=== PATIENT | male | born 1930 | race Caucasian/White ===

== ENCOUNTER 2016-08-05 17:00 | Inpatient (IN) | payer OTHER ==
[~2016-08-05] VITALS: Ht 175.3 cm; Wt 83.9 kg
--- NOTE | ~2016-08-05 | EKG ---
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
--- NOTE | ~2016-08-05 | HC ---
[facility] [place] [address] CONSULTATION Name: ANSLEY GRAF Room #: 451-P [facility] IN .R.#: [id number] Admission: 08/05/16 Attend Phys: Judd Mayfield MD Discharge: Date of : [birth year] Report #: [id number] THIS REPORT FOR: //name// CC: Demarcus Mayfield REASON FOR CONSULTATION: Paroxysmal atrial fibrillation. HISTORY OF PRESENT ILLNESS: The patient is a nice 86-year-old gentleman with sick sinus syndrome and symptomatic bradycardia for which he underwent pacemaker implantation about a year ago. He has a Medtronic device. His history includes tachybrady syndrome. His history includes moderate aortic stenosis and normal left ventricular systolic function. He was last seen in our office in 06/2015, at which time he was doing well. He did report taking sublingual nitroglycerin if he overexerts himself, maybe once or twice a month. No history of recurrent near-syncope or syncope. He is now admitted with progressive hypoxemia. Family reported that he had nausea and vomiting and thinks that he has probably been aspirating despite nectar-thickened liquids. No orthopnea or paroxysmal nocturnal dyspnea. A discussion and decision was made over a year ago not to initiate systemic anticoagulation for his paroxysmal atrial fibrillation, but rather continue aspirin and plavix. ALLERGIES: CODEINE, TRAMADOL. MEDICATIONS: Include Aricept, albuterol, Plavix 75 mg daily, pravastatin 40 mg daily, Imdur 60 mg daily, carvedilol 3.125 mg twice daily, aspirin, Seroquel, and omeprazole. PAST MEDICAL HISTORY: Medical records have been reviewed and include history of 2-vessel bypass; Medtronic pacemaker implantation; COPD; prior TIA, probably cardioembolic; knee replacement; moderate aortic stenosis. SOCIAL HISTORY: He is a , retired, a former smoker. FAMILY HISTORY: Notable for premature coronary disease. REVIEW OF SYSTEMS: All systems negative except as that noted above. PHYSICAL EXAMINATION: GENERAL: A pleasant gentleman who is alert, somewhat confused. There are either xanthelasma, subcutaneous xanthomata, oral mucosal or digital cyanosis or kyphoscoliosis present. VITAL SIGNS: Blood pressure is 140/90, heart rate of 71 and regular, respirations unlabored at 18. Temperature is 100.1 degrees. CHEST: Diminished breath sounds at both bases. CARDIAC: Regular rate and rhythm with a normal S1, S2. He has a systolic murmur at the base. [facility] [address] [place] [address] CONSULTATION Name: ANSLEY GRAF Room #: 451-P [facility] IN [facility]#: [id number] Admission: 08/05/16 Attend Phys: Judd Mayfield MD Discharge: Date of : [birth year] Report #: [id number] ABDOMEN: Soft and nontender. EXTREMITIES: Without cyanosis or clubbing. Radial pulses are 2+. NEUROLOGIC: He is alert. LABORATORY AND DIAGNOSTIC DATA: EKG sinus rhythm with incomplete right bundle-branch block. He was in atrial fibrillation earlier today, which was converted pharmacologically with IV Cardizem. Sodium 140, potassium 4.1, creatinine 0.9. Troponin 0. ProBNP of 1289. White count 6.0, hemoglobin 12, hematocrit 38, platelet count 156. Chest x-ray demonstrates patchy bilateral perihilar and lower lobe infiltrates. IMPRESSION: 1. Aspiration pneumonitis. 2. Chronic obstructive pulmonary disease exacerbation. 3. Sick sinus syndrome with prior pacemaker implantation. 4. Paroxysmal atrial fibrillation, now in sinus rhythm. 5. Hypertension. 6. Hypercoagulable condition. 7. Dementia; psychosis. 8. Aortic stenosis, moderate. RECOMMENDATIONS: 1. Continued use of IV Cardizem as long as the patient is n.p.o. 2. Topical nitrates and intravenous beta blockade until able to take usual p.o. medicines. I have discussed this with the nursing staff. Thank you for asking me to participate in the patient's care. <ELECTRONICALLY SIGNED> By: Jayson Thorpe MD, [facility] 08/11/16 0835 1849 0020 Jayson Thorpe MD, FAC /nt
--- NOTE | ~2016-08-05 | H ---
[facility] [place] [address] HISTORY AND PHYSICAL Name: ANSLEY GRAF Room #: 451-P [facility] IN M.R.#: [id number] Admission: 08/05/16 Attend Phys: Judd Mayfield MD Discharge: 08/12/16 Date of : [birth year] Report #: [id number] THIS REPORT FOR: //name// CC: Demarcus Nova ATTENDING PHYSICIAN:Jaxon Nova M.D. PRIMARY CARE PHYSICIAN: DO Aviva CHIEF COMPLAINT: Shortness of air, cough and congestion. HISTORY OF PRESENT ILLNESS: The patient is an 86-year-old male whose family apparently called EMS due to shortness of air. Patient has been short of air for a few days and had some cough and congestion. EMS arrived with oxygen with 74% on room air. He does have COPD and wears 3 liters of oxygen only p.r.n. His family reported he was having some vomiting yesterday and has had problems with aspiration in the past and drinks nectar thickened liquids. The patient has history of dementia, so he is slightly confused and the family is not present, so I do not have much other history at this time. He did improve in the ER and is currently on 3 liters of oxygen and in no respiratory distress. His initial blood pressure was 89/66 and has improved with IV fluids. PAST MEDICAL HISTORY: COPD, coronary artery disease, dementia, paroxysmal atrial fibrillation, aortic stenosis, hypertension, and prior aspiration. PAST SURGICAL HISTORY: CABG x 2 vessels, pacemaker placement, bilateral knee replacements. ALLERGIES: CODEINE and TRAMADOL, unknown reactions and TRAZODONE hallucination and paranoia. HOME MEDICATIONS: Donepezil 5 mg q.h.s., albuterol inhalers p.r.n. and albuterol nebulizer q. 6 hours p.r.n., Plavix 75 mg daily, pravastatin 40 mg q.h.s., fish oil 1000 mg b.i.d., Imdur 60 mg daily, carvedilol 3.125 mg b.i.d., aspirin 81 mg daily, Tylenol p.r.n., Seroquel 50 mg at 8:30 in the morning, 11:30 and 8:30 p.m. and then he takes Seroquel 100 mg at 2:30 and 5:30 p.m., Advair 250/50 one puff b.i.d., guaifenesin 600 mg p.r.n., and omeprazole 20 mg daily, Nystatin 15 mg b.i.d, multivitamin daily, melatonin 3 mg q.h.s. and calcium carbonate 1000 mg b.i.d. p.r.n. SOCIAL HISTORY: The patient is tired. He lives with his daughter and his . He is an ex-smoker, having quit in 1952. He denies any alcohol or drug use. He uses a wheelchair mainly to get around, sometimes a walker, it is a short distance. FAMILY HISTORY: Noncontributory. [address] [address] HISTORY AND PHYSICAL Name: ANSLEY GRAF Room #: 451-P DIS IN M..#: [id number] Admission: 08/05/16 Attend Phys: Judd Mayfield MD Discharge: 08/12/16 Date of : [birth year] Report #: [id number] REVIEW OF SYSTEMS: Unobtainable due to confusion. PHYSICAL EXAMINATION: GENERAL: The patient is an alert, but confused male in no acute distress. VITAL SIGNS: Temperature is 37.8, heart rate 99, respirations initially were 32, they are now 20 and initial blood pressure was 89/66, it is now 128/82. Oxygen is 93% on 3 liters O2. HEENT: PERRLA. Sclerae is nonicteric. Oral mucosa is pink and dry. It is only wearing his top dentures. His tongue has no saliva. NECK: Supple, no JVD noted. CARDIOVASCULAR: He does have a harsh 4/6 systolic ejection murmur with regular rate and rhythm. RESPIRATORY: Breath sounds are coarse bilaterally. He has a very wet nonproductive cough. ABDOMEN: Soft, round, it is nontender, nondistended with positive bowel sounds. VASCULAR: He does have some chronic brown venous insufficiency, discoloration to his right lower leg. Both feet are very cool and on the right, his toes are somewhat mottled with decreased cap refill and there is no palpable pulse on the right. I was able to get it with Doppler but it is very weak. On the left, his foot is cool, but toes are less mottled on this side and he does have a palpable pulse of 1+. NEUROLOGIC: The patient is alert. Although he is confused, he was not able to tell me the current month or the year or where he was. He is alert and oriented to self only, but he is mostly responding to following commands and carries on a conversation. LABORATORY AND DIAGNOSTICS: WBC is 5.6, hemoglobin 13.7, platelets 168. Sodium 145, potassium 4.3, BUN 20, creatinine 1.1, glucose 131. LFTs are within normal limits. Troponins negative. ABG showed a pH of 7.38, pCO2 of 40.8, pO2 74.6, bicarbonate 23.7 and lactate is 0.9. EKG is showing ectopic atrial rhythm. Chest x-ray showed cardiomegaly with vascular congestion and patchy bilateral perihilar lower lobe opacity. There is no evidence of pneumothorax or significant pleural effusion. There are small bilateral pleural effusions suggested. ASSESSMENT AND PLAN: 1. Pneumonia. This will be considered community-acquired since he comes from home versus aspiration. Initially in the ER, they did not know where he came from, so he was covered for healthcare acquired pneumonia. We will deescalate antibiotics to just to cover for aspiration. He is running low grade temps, but he does not have any leukocytosis or lactic acidosis. Because there is concern for aspiration, we will have speech therapy evaluate. 2. Fluid overload. He does have some pleural effusions on chest x-ray. BNP is 1289. He does have a history of moderate aortic stenosis and grade 1 diastolic dysfunction. We will check an echo in the morning. Lasix was not given because [address] [address] HISTORY AND PHYSICAL Name: ANSLEY GRAF Room #: 451-P [facility] IN [facility].#: [id number] Admission: 08/05/16 Attend Phys: Judd Mayfield MD Discharge: 08/12/16 Date of : [birth year] Report #: [id number] of hypotension when he first arrived, but he may end up needing some diuresis once his blood pressure improved. 3. Jhgnx-zj-vlcbtuq hypoxic respiratory failure. The patient does have underlying chronic obstructive pulmonary disease. He is coarse and wheezy. We will add IV steroids and scheduled breathing treatments along with antibiotics, wean oxygen as able. 4. Dementia. The patient is at baseline. 5. History of coronary artery disease with prior CABG. Troponin is negative. EKG showed no acute findings. 6. Paroxysmal atrial fibrillation. The patient is currently on a sinus rhythm, continue to monitor on telemetry. He is not on any anticoagulation. 7. History of hypertension with current hypotension. We will hold blood pressure medications. He is being gently hydrated. 8. Arterial insufficiency. We will check arterial Doppler on the right lower extremity. Continue with Plavix and aspirin at home. 9. Deep vein thrombosis prophylaxis: Start Lovenox. We will continue to follow the patient closely throughout the hospitalization and make changes based on clinical status. <ELECTRONICALLY SIGNED> By: FERMIN Myers 08/19/16 0714 0530 0704 FERMIN Myers /susannha
--- NOTE | ~2016-08-05 | EKG ---
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
--- NOTE | ~2016-08-05 | 2DMMODE ---
[facility] [place] [address] 2 D/M-MODE ECHOCARDIOGRAM Name: ANSLEY GRAF Room #: 451-P [facility] IN [facility]#: [id number] Admission: 08/05/16 Attend Phys: Judd Mayfield MD Discharge: Date of : [birth year] Date of Service: 08/09/16817 Report #: [id number] THIS REPORT FOR: //name// Transthoracic Echocardiography Ordering physician: Jud Monroe Referring physician: Demarcus Chicas Kate E. Associate Professor Of Radiology: Clementina Mc Indications/History: SOA, HTN, COPD, Pacemaker, Afib, aortic stenosis. BP: 96 / 54 HR: 83bpm Height: 69in Weight: 185.6lb Study data: M-mode, complete 2D, complete spectral Doppler, and color Doppler. Location: Bedside. Routine. Image quality was adequate. 2D measurements Normal Normal LVID ED 55.4mm 36-57 IVS ED 12.7mm 6-11 LVID ES 40mm 23-40 LVPW ED 11.9mm 6-11 LA volume 45ml/m2 16-28 AoRoot diam 38.4mm 21-37 index ED LVOT diameter 23mm 18-23 Findings: Left ventricle: The cavity size was normal. Wall thickness was increased in a pattern of mild LVH. Systolic function was normal. The estimated ejection fraction was in the range of 55%. Wall motion was normal. Right ventricle: The cavity size was normal. Systolic function was normal. Right atrium: The atrium was mildly dilated. Left atrium: The atrium was moderately dilated. Volume index: 45ml/m2 (S). Aortic valve: Severely calcified leaflets. Doppler: There was moderately severe to severe stenosis. Valve area by continuity equation was 0.8cm2. Trivial regurgitation. Peak velocity: 409.2cm/s (S). Mean gradient: 39.8mm Hg [facility] [address] [place] [address] 2 D/M-MODE ECHOCARDIOGRAM Name: ANSLEY GRAF Room #: 451-P [facility] IN [facility]#: [id number] Admission: 08/05/16 Attend Phys: Judd Mayfield MD Discharge: Date of : [birth year] Date of Service: 08/09/16 0818 Report #: [id number] (S). Peak gradient: 67mm Hg (S). Mitral valve: The valve appears to be grossly normal. Doppler: There was no evidence for stenosis. Moderate regurgitation. Peak E-wave velocity: 45cm/s. Peak A-wave velocity: 73.8cm/s. Tricuspid valve: Structurally normal valve. Doppler: There was no evidence for stenosis. Mild-moderate regurgitation. Regurgitant peak velocity: 251.4cm/s. Peak RV-RA gradient: 25mm Hg (S). Pulmonic valve: Structurally normal valve. Doppler: There was no evidence for stenosis. Trivial regurgitation. Pericardium: There was no pericardial effusion. Aorta: Aortic root: The aortic root was normal in size. 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 Pulmonary artery: Systolic pressure was estimated to be 30mm Hg. Diastolic function: Doppler parameters are consistent with abnormal left ventricular relaxation (grade 1 diastolic dysfunction). Systemic veins: Inferior vena cava: The vessel was normal in size; the respirophasic diameter changes were in the normal range (= 50%). Conclusions 1. Left ventricle: The cavity size was normal. Wall thickness was increased in a pattern of mild LVH. Systolic function was normal. The estimated ejection fraction was in the range of 55%. Wall motion was normal. Doppler parameters are consistent with abnormal left ventricular relaxation (grade 1 diastolic dysfunction). 2. Aortic valve: Severely calcified leaflets. There was moderately severe to severe stenosis. Valve area by continuity equation was 0.8cm2. Trivial regurgitation. Mean gradient: 39.8mm Hg (S). Peak gradient: 67mm Hg (S). 3. Mitral valve: The valve appears to be grossly normal. Moderate regurgitation. 4. 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 5. Pulmonary arteries: Systolic pressure was estimated to be 30mm Hg. [facility] [place] [address] 2 D/M-MODE ECHOCARDIOGRAM Name: ANSLEY GRAF Room #: 451-P [facility] IN [facility]#: [id number] Admission: 08/05/16 Attend Phys: Judd Mayfield MD Discharge: Date of : [birth year] Date of Service: 08/09/16817 Report #: [id number] 6. Pericardium, extracardiac: There was no pericardial effusion. <ELECTRONICALLY SIGNED> By: Jayson Thorpe MD, [facility] 08/09/16948 7 8 Jayson Thorpe MD, FACC /samuel
[~2016-08-05 17:00] MED LIST: ADVAIR 100-501 EACH INH; ADVAIR 250-501 EACH INH; ALBUTEROL2.5 MG/31 INH; APAP500 PO; ARICEPT 5 MG TAB5 MG PO; ASPIRIN EC81 M1 PO; ASPIRIN325 PO; AUGMENTIN 875875 MG PO; BENADRYL25 MG PO; CARVEDILOL12.5 MG PO; CARVEDILOL6.25 MG PO; CENTRUM SILVER1 EAC4 PO; CIPRO500 MG PO; COLACE100 MG PO; COREG3.125 MG PO; COUMADIN 5 MG TA5 M1 PO; COUMADIN6 MG PO; HYDROCODON-ACE1 EACH PO; IMDUR 60 MG TAB60 M1 PO; IMDUR120 MG PO; KEFLEX250 MG PO; LORTAB 10 MG-3473 ML PO; MOTION RELIEF25 MG PO; MUCINEX600 MG PO; NITROSTAT0.4 MG SUBLING; NORCO 5-325 TA1 EACH PO; NORVASC 2.5 MG2.5 M1 PO; NORVASC 5 MG TAB5 MG PO; NYSTATIN 100,0015 G1 TP; OMEGA-31000 M1 PO; OMEPRAZOLE20 M2 PO; PACERONE 200 M200 M1 PO; PLAVIX 75 MG TA75 M1 PO; PRAVACHOL40 MG PO; PREDNISONE; PREDNISONE 10 M10 M1 PO; PREDNISONE 10 M10 MG PO; REQUIP 0.25 M0.25 MG PO; ROBAXIN 750 MG750 M1 PO; SENNA S TABLET1 EACH PO; SENOKOT-S1 TA1 PO; SEROQUEL 12.512.5 MG PO; SPIRIVA18 MCG INH; TRANSDERM-SCO1 PATC1 TD; TUMS PO; VENTOLIN HFA 1818 GM INH; ZOFRAN4 MG PO
[2016-08-05 17:09] VITALS: BP 89/66
[2016-08-05 18:02] LABS: ABSOLUTE NEUTROPHILS 4.5 thou/uL (1.4-8.2); EOSINOPHILS 2.3 % (0.0-3.0); HEMATOCRIT 40.6 % (42.0-52.0); HEMOGLOBIN 13.7 gm/dL (14.0-18.0); LYMPHOCYTES 10.2 % (24.0-44.0); MCH 30.3 pg (26.0-34.0); MCHC 33.7 % (28.0-37.0); MONOCYTES 7.5 % (1.0-8.0); PLATELET COUNT 168 thou/uL (150-400); RBC 4.51 mil/uL (4.50-6.00); RDW 14.7 % (10.5-14.5); WBC 5.6 thou/uL (4.0-11.0)
[2016-08-05 18:05] LABS: MANUAL DIFF NO
[2016-08-05 18:11] LABS: ANION GAP 9 mmol/L (7-16); BUN 20 mg/dL (7-18); CHLORIDE 108 mmol/L (98-107); CO2 28 mmol/L (21-32); CREATININE 1.1 mg/dL (0.6-1.3); GLUCOSE 131 mg/dL (70-99); POTASSIUM 4.3 mmol/L (3.5-5.1); SODIUM 145 mmol/L (136-145)
[2016-08-05 18:19] LABS: ALBUMIN 3.5 g/dL (3.4-5.0); ALKALINE PHOSPHATASE 73 U/L (46-116); SGOT 11 U/L (15-37); TOTAL BILIRUBIN 0.6 mg/dL (<0.1-1.0); TOTAL PROTEIN 6.9 g/dL (6.4-8.2); TROPONIN-I < 0.04 ng/mL (<0.04-0.07)
[2016-08-05 18:48] LABS: ABG SAMPLE TYPE ARTERIAL; BE(vivo) -1.3 mmol/L (-2 to +3); HCO3 23.7 mmol/L (22.0-26.0); LACTATE 0.94 mmol/L (0.5-2.0); O2(CT) 17.3 mL/dL (15.0-23.0); O2Hb 93.5 % (92.0-98.0); PCO2 40.8 mmHg (35.0-45.0); PO2 74.6 mmHg (80.0-100.0); pH 7.382 (7.360-7.450); sO2 94.8 % (92.0-98.0)
[2016-08-05 18:49] LABS: ABG COMMENT NO COMPLICATIONS.; STICK SITE R.RADIAL
[2016-08-05] MEDS ORDERED: SEROQUEL 50 MG50 MG PO (19:12)
[2016-08-05] MEDS ORDERED: MELATONIN3 MG PO (19:13)
[2016-08-05 19:23] VITALS: BP 103/66
[2016-08-05 19:30] VITALS: BP 128/82
[2016-08-05 23:15] LABS: SGPT 20 U/L (30-65)
[2016-08-06] VITALS (7 sets, daily range): BP systolic 112–141; BP diastolic 63–101
[2016-08-06 06:24] LABS: HEMATOCRIT 38.7 % (42.0-52.0); HEMOGLOBIN 12.7 gm/dL (14.0-18.0); MCH 30.4 pg (26.0-34.0); MCHC 32.8 % (28.0-37.0); MCV 92.6 fL (80.0-100.0); RBC 4.18 mil/uL (4.50-6.00); RDW 14.7 % (10.5-14.5)
[2016-08-06 06:52] LABS: CALCIUM 8.5 mg/dL (8.5-10.1); CREATININE 0.9 mg/dL (0.6-1.3); POTASSIUM 4.1 mmol/L (3.5-5.1)
[2016-08-07 02:54] VITALS: BP 110/58
[2016-08-07 04:37] LABS: HEMATOCRIT 39.5 % (42.0-52.0); MCH 30.5 pg (26.0-34.0); MCV 92.5 fL (80.0-100.0); RBC 4.27 mil/uL (4.50-6.00); RDW 14.8 % (10.5-14.5); WBC 9.5 thou/uL (4.0-11.0)
[2016-08-07 04:40] LABS: CALCIUM 8.7 mg/dL (8.5-10.1); CREATININE 1.1 mg/dL (0.6-1.3); POTASSIUM 3.8 mmol/L (3.5-5.1)
[2016-08-07 09:24] VITALS: BP 129/86
[2016-08-07 11:49] VITALS: BP 111/54
[2016-08-07 15:07] VITALS: BP 136/81
[2016-08-07 19:13] VITALS: BP 140/95
[2016-08-08 02:43] LABS: HEMATOCRIT 39.8 % (42.0-52.0); HEMOGLOBIN 13.1 gm/dL (14.0-18.0); MCH 30.3 pg (26.0-34.0); MCHC 32.9 % (28.0-37.0); RBC 4.32 mil/uL (4.50-6.00); RDW 14.5 % (10.5-14.5)
[2016-08-08 02:55] VITALS: BP 139/63
[2016-08-08 03:12] LABS: CALCIUM 8.5 mg/dL (8.5-10.1); CREATININE 1.1 mg/dL (0.6-1.3); POTASSIUM 3.6 mmol/L (3.5-5.1)
[2016-08-08 08:00] VITALS: BP 140/63
[2016-08-08 12:00] VITALS: BP 136/62
[2016-08-08 16:00] VITALS: BP 124/75
[2016-08-08 20:00] VITALS: BP 96/54
[2016-08-09 04:00] VITALS: BP 110/91
[2016-08-09 07:25] LABS: HEMATOCRIT 43.1 % (42.0-52.0); HEMOGLOBIN 14.5 gm/dL (14.0-18.0); MCH 30.4 pg (26.0-34.0); MCHC 33.7 % (28.0-37.0); MCV 90.2 fL (80.0-100.0); PLATELET COUNT 182 thou/uL (150-400); RBC 4.78 mil/uL (4.50-6.00); RDW 14.6 % (10.5-14.5); WBC 9.5 thou/uL (4.0-11.0)
[2016-08-09 07:28] LABS: MANUAL DIFF YES
[2016-08-09 07:44] LABS: ALBUMIN 3.3 g/dL (3.4-5.0); CALCIUM 8.7 mg/dL (8.5-10.1); POTASSIUM 3.3 mmol/L (3.5-5.1); TOTAL BILIRUBIN 0.6 mg/dL (<0.1-1.0); TOTAL PROTEIN 6.7 g/dL (6.4-8.2)
[2016-08-09 08:00] VITALS: BP 100/71
[2016-08-09 08:34] LABS: ABSOLUTE NEUTROPHILS 8.6 thou/uL (1.4-8.2); TOTAL CELL COUNT 100
[2016-08-09 11:15] VITALS: BP 148/66
[2016-08-09 16:00] VITALS: BP 126/82
[2016-08-09 19:18] VITALS: BP 101/64
[2016-08-10 02:32] VITALS: BP 105/63
[2016-08-10 06:17] LABS: HEMATOCRIT 39.6 % (42.0-52.0); HEMOGLOBIN 13.3 gm/dL (14.0-18.0); MCH 30.2 pg (26.0-34.0); MCHC 33.6 % (28.0-37.0); MCV 89.9 fL (80.0-100.0); RBC 4.41 mil/uL (4.50-6.00); RDW 14.6 % (10.5-14.5); WBC 6.7 thou/uL (4.0-11.0)
[2016-08-10 06:37] LABS: ALBUMIN 2.8 g/dL (3.4-5.0); CALCIUM 8.4 mg/dL (8.5-10.1); CREATININE 1.1 mg/dL (0.6-1.3); POTASSIUM 3.5 mmol/L (3.5-5.1); TOTAL BILIRUBIN 0.6 mg/dL (<0.1-1.0); TOTAL PROTEIN 5.6 g/dL (6.4-8.2)
[2016-08-10 08:00] VITALS: BP 134/54
[2016-08-10 16:00] VITALS: BP 113/67
[2016-08-10 19:28] VITALS: BP 109/66
[2016-08-11 03:47] VITALS: BP 119/66
[2016-08-11 05:57] LABS: CALCIUM 8.4 mg/dL (8.5-10.1); CREATININE 0.9 mg/dL (0.6-1.3); POTASSIUM 3.8 mmol/L (3.5-5.1)
[2016-08-11 07:37] VITALS: BP 130/85
[2016-08-11 07:37] LABS: HEMATOCRIT 37.9 % (42.0-52.0); HEMOGLOBIN 12.9 gm/dL (14.0-18.0); MCH 30.7 pg (26.0-34.0); MCHC 33.9 % (28.0-37.0); MCV 90.4 fL (80.0-100.0); RBC 4.2 mil/uL (4.50-6.00); RDW 14.9 % (10.5-14.5); WBC 7.3 thou/uL (4.0-11.0)
[2016-08-11 11:48] VITALS: BP 111/70
[2016-08-11 15:36] VITALS: BP 112/69
[2016-08-11 19:37] VITALS: BP 121/71
[2016-08-12 05:29] VITALS: BP 123/54
[2016-08-12 07:32] VITALS: BP 130/73
[2016-08-12 12:52] VITALS: BP 97/50
[2016-08-12 15:35] VITALS: BP 100/56
[2016-08-12] MEDS ORDERED: DEPAKOTE 250MG250 M1 PO (16:27)
[2016-08-12] MEDS ORDERED: SEROQUEL 50 MG50 MG PO (16:27)
[2016-08-12] MEDS ORDERED: PREDNISONE 10 M10 MG PO (16:27)
[2016-08-12] MEDS ORDERED: SEROQUEL 100 M100 MG PO (16:27)
[2016-08-12] MEDS ORDERED: LEVAQUIN 500 M500 M2 PO (16:28)
[2016-08-30] MEDS ORDERED: SEROQUEL 50 MG50 MG PO (09:41)
== END 2016-08-12 17:31 | DRG 871 ==
LOC: ER 17:00 → EROBS 18:25 → 4W 18:25
PROVIDERS: Family Medicine; Hospitalist; Nurse Practitioner; Nurse Practitioner Acute Care; Nurse Practitioner Family; Physician Assistant
DX: A41.9 Sepsis, unspecified organism (principal); J96.21 Acute and chronic respiratory failure with hypoxia; J69.0 Pneumonitis due to inhalation of food and vomit; J44.1 Chronic obstructive pulmonary disease with (acute) exacerbation; J44.0 Chronic obstructive pulmonary disease with (acute) lower respiratory infection; D68.59 Other primary thrombophilia; E87.0 Hyperosmolality and hypernatremia; F03.91 Unspecified dementia, unspecified severity, with behavioral disturbance; I47.1 Supraventricular tachycardia; I25.10 Atherosclerotic heart disease of native coronary artery without angina pectoris; I49.5 Sick sinus syndrome; I11.0 Hypertensive heart disease with heart failure; I50.9 Heart failure, unspecified; K75.9 Inflammatory liver disease, unspecified; I48.0 Paroxysmal atrial fibrillation; I95.9 Hypotension, unspecified; I35.0 Nonrheumatic aortic (valve) stenosis; Z96.653 Presence of artificial knee joint, bilateral; Z87.891 Personal history of nicotine dependence; Z86.73 Personal history of transient ischemic attack (TIA), and cerebral infarction without residual deficits; Z95.1 Presence of aortocoronary bypass graft; Z95.0 Presence of cardiac pacemaker; Z88.8 Allergy status to other drugs, medicaments and biological substances; Z82.49 Family history of ischemic heart disease and other diseases of the circulatory system
CPT/HCPCS: 10045